=== PATIENT | female | born 1975 | race Caucasian/White ===

== ENCOUNTER 2019-06-02 21:17 | Emergency (ER) | payer MEDICAID, OTHER ==
[~2019-06-02] VITALS: Ht 162.6 cm; Wt 81.5 kg
[~2019-06-02 21:17] MED LIST: CIPR500T4 PO; IBUP-1542 PO
[2019-06-02 21:20] VITALS: Ht 162.6 cm; Wt 81.5 kg
[2019-06-02] MEDS ORDERED: morphine 4 MG/ML VIAL IV STA (21:41)
[2019-06-02] MEDS ORDERED: ONDANSETRON 4 MG INJ IV STA (21:41)
[2019-06-02] MEDS ORDERED: CEFTRIAXONE 1 GM/50 ML (PMX) 50 ML IVPB ONE (23:30)
[2019-06-03 00:11] VITALS: BP 94/59; PULSE 89; RESP 16
== END 2019-06-03 00:13 | disposition home or self-care (01) ==
LOC: E/R 21:17
DX: N12 Tubulo-interstitial nephritis, not specified as acute or chronic (principal)
CPT/HCPCS: 36415; 76705; 80053; 81001; 83690; 84703; 85025; 96365; 96375; J0696; J2270; J2405; Z7502